=== PATIENT | female | born 1985 | race Caucasian/White ===

== ENCOUNTER 2022-09-13 14:49 | Inpatient (IN) | payer MEDICAID, OTHER ==
[2022-09-13] MEDS ORDERED: PROVENTIL 2.5 MG/3 ML NEB IH ONE ×2 (15:19→15:21)
[2022-09-13] MEDS ORDERED: solu-MEDROL 125 MG, Sterile H2O 10 ml 2 ML IV ONE ×2 (15:20)
[2022-09-13] MEDS ORDERED: HYDROCODONE-ACETAMIN 2.5-108/5 ML SOLUTION PO STA (15:21)
[2022-09-13] MEDS ORDERED: Sterile H2O 10 ml IJ ONE (15:29)
[2022-09-13] MEDS ORDERED: solu-MEDROL ONE (15:30)
[2022-09-13] MEDS ORDERED: HYDROCODONE-ACETAMIN 2.5-108/5 ML SOLUTION ONE (15:30)
[2022-09-13 15:36] LABS: Absolute Neutrophil Ct (ANC) 7.15 x10^3/uL (1.4-6.9); BASOPHIL % 0.9 % (0.0-0.4); Basophil (Absolute #) 0.09 x10^3/uL (0-0.4); Hematocrit 36.5 % (35-47); Hemoglobin 10.9 g/dL (12.0-16.0); IMMATURE GRAN # 0.05 x10^3u/L (0.00-0.03); IMMATURE GRAN % 0.5 % (0.00-0.4); Lymphocyte (Absolute #) 1.46 x10^3/uL (1.0-4.6); Lymphocytes % 14.7 % (24.0-44.0); Mean Cell Volume 91.7 fL (78-100); Mean Corpuscular Hemoglobin 27.4 pg (26-32); Mean Corpuscular Hgb Concent. 29.9 g/dL (32-36); Monocyte (Absolute #) 0.85 x10^3/uL (0.0-1.3); Monocytes % 8.6 % (0.0-12.0); Neutrophil % 72.3 % (36.0-66.0); Platelet Count 341 x10^3/uL (150-450); Red Blood Count 3.98 x10^6/uL (4.1-5.4); Red Cell Distribution Width 16.4 % (11.5-14.0); White Blood Count 9.9 x10^3/uL (4.0-10.5)
[2022-09-13 15:59] LABS: ALBUMIN 3.5 g/dL (3.5-5.0); ALKALINE PHOSPHATASE 129 U/L (38-126); ANION GAP 10.2 MEQ/L (5-15); BLOOD UREA NITROGEN 14 mg/dL (7-17); CHLORIDE 107 mmol/L (98-107); Calcium 8.7 mg/dL (8.4-10.2); Carbon Dioxide 25 mmol/L (22-30); Creatinine 1 0.77 mg/dL (0.52-1.04); EST GLOMERULAR FILTRATION RATE > 60.0 ML/MIN; Glucose 110 mg/dL (74-106); NT PRO BNP 4700 pg/mL (0-450); SGOT/AST 31 U/L (14-36); SGPT/ALT 37 U/L (0-35); SODIUM 138 mmol/L (137-145); Total Protein 6.6 g/dL (6.3-8.2)
--- NOTE | 2022-09-13 16:04 | ERPHSYRPT ---
- History of Present Illness Time Seen by Provider: 09/13/22 15:00 Source: patient Exam Limitations: clinical condition Patient Subjective Stated Complaint: Pt c/o of SOB, cough, body fatigue, chest pain from cough Triage Nursing Assessment: Pt brought to the ER by a friend, hypertensive, tachycardic, hypoxic, tachypnic, crackles in lyn bases with exp wheezes, cough with intermittant thick yellow sputum, skin flushed in color, pulses normal, ra lasha pain as 4/10 in her chest from coughing Physician History: This is an obese 36-year-old white female who has not seen a primary care physician and is a current daily smoker of cigarettes and presents with 2-month history of worsening shortness of breath. The last few days the patient has noticed increased coughing, increased shortness of breath as well as body aches. She is coughing up yellowish sputum. Patient has an appointment to see Dr. Cosby in 1 to 2 weeks. Her symptoms worsened rapidly and she states that she could not wait to see Dr. Cosby. She has not measured a fever. She has no abdominal pain. She states she has chest pain with coughing only. Timing/Duration: worse, other (Symptoms present for couple of months.) Activities at Onset: none Severity of Dyspnea-Max: moderate Severity of Dyspnea-Current: moderate Possible Cause: no prior episodes Modifying Factors: Improves With: coughing Associated Symptoms: anxiety, cough, productive cough Hx Influenza Vaccination/Date Given: No Hx Pneumococcal Vaccination/Date Given: No Travel Risk - International Travel Have you traveled outside of the country in past 3 weeks: No - Coronavirus Screening Are you exhibiting any of the following symptoms?: Yes Symptoms: Cough: New Onset, Shortness of Breath, Vomiting/Diarrhea, Headaches/Body Aches/Fatigue Close contact with a COVID-19 positive Pt in past 14-21 Days: No - Vaccine Status Have you recieved a Covid-19 vaccination: Yes L D Rn: [employer] - Review of Systems Constitutional: Weakness Eyes: No Symptoms Ears, Nose, & Throat: No Symptoms Respiratory: Cough, Dyspnea Cardiac: Chest Pain (Coughing only) Abdominal/Gastrointestinal: No Symptoms Genitourinary Symptoms: No Symptoms Musculoskeletal: Arthralgias, Myalgias Skin: No Symptoms Neurological: No Symptoms Psychological: No Symptoms Endocrine: No Symptoms Hematologic/Lymphatic: No Symptoms Immunological/Allergic: No Symptoms All Other Systems: Reviewed and Negative - Past Medical History Pertinent Past Medical History: Yes Cardiac History: Hypertension Musculoskeletal History: Arthritis Psycho-Social History: Depression - Past Surgical History Past Surgical History: Yes Gastrointestinal: Cholecystectomy Musculoskeletal: Joint Replacement Female Surgical History: Section - Social History Smoking Status: Current every day smoker Exposure to second hand smoke: Yes Drug Use: none Patient Lives Alone: Yes - Female History Hx Now: No - Nursing Vital Signs Nursing Vital Signs: Initial Vital Signs Temperature 98.4 F 09/13/22 14:58 Pulse Rate 107 H 09/13/22 14:58 Respiratory Rate 30 H 09/13/22 14:58 Blood Pressure 178/129 09/13/22 14:58 O2 Sat by Pulse Oximetry 92 L 09/13/22 14:58 Pain Scale Pain Intensity 0 - Physical Exam General Appearance: mild distress (To moderate), alert, anxiety, obese Eye Exam: PERRL/EOMI, eyes nml inspection Ears, Nose, Throat Exam: hearing grossly normal, normal ENT inspection, normal pharynx Neck Exam: normal inspection, non-tender, supple, full range of motion Respiratory Exam: respiratory distress, airway intact, diminished breath sounds (Bilaterally), No chest tenderness Cardiovascular/Chest Exam: normal heart sounds, normal peripheral pulses, tachycardia Abdominal/Gastrointestinal Exam: soft, normal bowel sounds, No tenderness Rectal Exam: not done Extremity Exam: non-tender, normal range of motion, normal inspection, No calf tenderness Neurologic Exam: alert, oriented x 3, cooperative, criminal profiler II-XII nml as tested, normal mood/affect, nml cerebellar function, nml station & gait, sensation nml Skin Exam: normal color, warm, dry Lymphatic Exam: No adenopathy SpO2 Interpretation: normal SpO2: 95 O2 Delivery: Room Air - Course Nursing assessment & vital signs reviewed: Yes EKG Interpreted by Me: RATE (103), Sinus Tach, NORMAL AXIS, prolonged QT interval (Borderline), NORMAL QRS, Other (No acute ischemic changes on today's EKG) Ordered Tests: Active Orders 24 hr Category Date Time Status EKG-ER Only STAT Care 09/13/22 15:20 Active IV Insertion STAT Care 09/13/22 15:20 Active Pulse Oximetry (ED) STAT Care 09/13/22 15:20 Active CHEST 1 VIEW (PORTABLE) Stat Exams 09/13/22 15:20 Completed CHEST WITH CONTRAST [CT] Stat Exams 09/13/22 16:12 Taken ARTERIAL BLOOD GASES Stat Lab 09/13/22 17:05 Completed BLOOD CULTURE Stat Lab 09/13/22 15:30 Received CBC W DIFF Stat Lab 09/13/22 15:28 Completed CMP Stat Lab 09/13/22 15:28 Completed D-DIMER QUANTITATIVE Stat Lab 09/13/22 15:28 Completed Lactic Acid Stat Lab 09/13/22 17:05 Completed NT PRO BNP Stat Lab 09/13/22 15:28 Completed TROPONIN Q4H Lab 09/13/22 15:28 Completed TROPONIN Q4H Lab 09/13/22 19:36 Completed TROPONIN Q4H Lab 09/13/22 23:30 Ordered Respiratory Therapy Assessment DAILY RT 09/13/22 15:21 Completed Transfer Order Routine Transfer 09/13/22 Ordered Medication Summary Generic Name Dose Route Start Last Admin Trade Name Freq PRN Reason Stop Dose Admin Sodium Chloride 1,000 mls @ 200 mls/hr 09/13/22 16:15 09/13/22 17:04 Sodium Chloride 0.9% 1000 Ml IV 10/13/22 16:14 200 mls/hr .Q5H MONO Administration Discontinued Medications Generic Name Dose Route Start Last Admin Trade Name Freq PRN Reason Stop Dose Admin Hydrocodone Bitart/Acetaminophen 15 ml 09/13/22 15:21 09/13/22 15:34 Hydrocodone/Acetaminophen 5 Ml Udcup PO 09/13/22 15:22 15 ml STAT STA Administration Hydrocodone Bitart/Acetaminophen Confirm 09/13/22 15:30 Hydrocodone/Acetaminophen 5 Ml Udcup Administered 09/13/22 15:31 Dose 15 ml .ROUTE .STK-MED ONE Albuterol Sulfate Confirm 09/13/22 15:19 Albuterol Sulfate 2.5 Mg/3 Ml Neb Administered 09/13/22 15:20 Dose 2.5 mg IH .STK-MED ONE Albuterol Sulfate 2.5 mg 09/13/22 15:21 09/13/22 15:22 Albuterol Sulfate 2.5 Mg/3 Ml Neb IH 09/13/22 15:22 2.5 mg STAT ONE Administration Apixaban 10 mg 09/13/22 20:01 09/13/22 20:21 Apixaban 2.5 Mg Tablet PO 09/13/22 20:02 Not Given STAT ONE Methylprednisolone Sodium 0 mg 09/13/22 15:20 09/13/22 16:46 Succinate 125 mg/ Sterile IV 09/13/22 15:21 125 mg Water 2 ml STAT ONE Administration Enoxaparin Sodium 160 mg 09/13/22 20:24 09/13/22 20:31 Enoxaparin Sodium 80 Mg/0.8 Ml Syringe SQ 09/13/22 20:25 160 mg STAT ONE Administration Enoxaparin Sodium Confirm 09/13/22 20:30 Enoxaparin Sodium 80 Mg/0.8 Ml Syringe Administered 09/13/22 20:31 Dose 160 mg SQ .STK-MED ONE Furosemide 40 mg 09/13/22 16:11 09/13/22 17:05 Furosemide 40 Mg/4 Ml Vial IV 09/13/22 16:12 40 mg STAT ONE Administration Furosemide Confirm 09/13/22 16:52 Furosemide 40 Mg/4 Ml Vial Administered 09/13/22 16:53 Dose 40 mg .ROUTE .STK-MED ONE Methylprednisolone Sodium Succinate Confirm 09/13/22 15:30 Methylprednis Sod Succ 125 Mg/2 Ml Vial Administered 09/13/22 15:31 Dose 125 mg .ROUTE .STK-MED ONE Sterile Water Confirm 09/13/22 15:29 Water For Injection,Sterile 10 Ml Vial Administered 09/13/22 15:30 Dose 10 ml IJ .STK-MED ONE Lab/Rad Data: Laboratory Result Diagrams 09/13/22 15:28 09/13/22 15:28 Laboratory Results 09/13/22 09/13/22 09/13/22 Range/Units 19:36 17:05 15:28 WBC (4.0-10.5) x10^3/uL RBC (4.1-5.4) x10^6/uL Hgb (12.0-16.0) g/dL Hct (35-47) % MCV (78-100) fL MCH (26-32) pg MCHC (32-36) g/dL RDW (11.5-14.0) % Plt Count (150-450) x10^3/uL MPV (7.5-11.0) fL Gran % (36.0-66.0) % Immature Gran % (Auto) (0.00-0.4) % Nucleat RBC Rel Count (0.00-0.1) % Eos # (Auto) (0-0.5) x10^3/uL Immature Gran # (Auto) (0.00-0.03) x10^3u/L Absolute Lymphs (auto) (1.0-4.6) x10^3/uL Absolute Monos (auto) (0.0-1.3) x10^3/uL Absolute Nucleated RBC (0.00-0.01) x10^3u/L Lymphocytes % (24.0-44.0) % Monocytes % (0.0-12.0) % Eosinophils % (0.00-5.0) % Basophils % (0.0-0.4) % Absolute Granulocytes (1.4-6.9) x10^3/uL Basophils # (0-0.4) x10^3/uL D-Dimer (0.0-0.50) mg/L Puncture Site RIGHT RADIAL pCO2 38 (35-45) mmHg pO2 94 (75-100) mmHg Base Excess 0.2 (-2.0-2.0) O2 Saturation 94.8 (94-100) g/dF ABG pH 7.42 (7.35-7.45) ABG HCO3 24.6 (22-28) ABG O2 Sat (Measured) 96.9 (95-100) % James Test y A-a Gradient 58 a/A Ratio 0.62 Hemoglobin 11.4 Carboxyhemoglobin 1.6 (0.0-6.9) % THgb Methemoglobin 0.6 L (1.4-1.5) % Temperature 37.0 C POC O2 Flow Rate 28 % Sodium (137-145) mmol/L Potassium 4.2 (3.5-5.1) mmol/L Chloride (98-107) mmol/L Carbon Dioxide (22-30) mmol/L Anion Gap (5-15) MEQ/L BUN (7-17) mg/dL Creatinine (0.52-1.04) mg/dL Estimated GFR ML/MIN Glucose (74-106) mg/dL Lactic Acid 0.8 (0.4-2.0) Calcium (8.4-10.2) mg/dL Total Bilirubin (0.2-1.3) mg/dL AST (14-36) U/L ALT (0-35) U/L Alkaline Phosphatase (38-126) U/L Troponin I 0.103 H* (0.000-0.034) ng/mL NT-Pro-B Natriuret Pep (0-450) pg/mL Serum Total Protein (6.3-8.2) g/dL Albumin (3.5-5.0) g/dL Influenza Type A Ag NEGATIVE (NEGATIVE) Influenza Type B Ag NEGATIVE (NEGATIVE) RSV (PCR) NEGATIVE (Negative) SARS-CoV-2 (PCR) NEGATIVE (NEGATIVE) 09/13/22 09/13/22 09/13/22 Range/Units 15:28 15:28 15:28 WBC (4.0-10.5) x10^3/uL RBC (4.1-5.4) x10^6/uL Hgb (12.0-16.0) g/dL Hct (35-47) % MCV (78-100) fL MCH (26-32) pg MCHC (32-36) g/dL RDW (11.5-14.0) % Plt Count (150-450) x10^3/uL MPV (7.5-11.0) fL Gran % (36.0-66.0) % Immature Gran % (Auto) (0.00-0.4) % Nucleat RBC Rel Count (0.00-0.1) % Eos # (Auto) (0-0.5) x10^3/uL Immature Gran # (Auto) (0.00-0.03) x10^3u/L Absolute Lymphs (auto) (1.0-4.6) x10^3/uL Absolute Monos (auto) (0.0-1.3) x10^3/uL Absolute Nucleated RBC (0.00-0.01) x10^3u/L Lymphocytes % (24.0-44.0) % Monocytes % (0.0-12.0) % Eosinophils % (0.00-5.0) % Basophils % (0.0-0.4) % Absolute Granulocytes (1.4-6.9) x10^3/uL Basophils # (0-0.4) x10^3/uL D-Dimer 3.03 H* (0.0-0.50) mg/L Puncture Site pCO2 (35-45) mmHg pO2 (75-100) mmHg Base Excess (-2.0-2.0) O2 Saturation (94-100) g/dF ABG pH (7.35-7.45) ABG HCO3 (22-28) ABG O2 Sat (Measured) (95-100) % James Test A-a Gradient a/A Ratio Hemoglobin Carboxyhemoglobin (0.0-6.9) % THgb Methemoglobin (1.4-1.5) % Temperature C POC O2 Flow Rate % Sodium 138 (137-145) mmol/L Potassium 4.0 (3.5-5.1) mmol/L Chloride 107 (98-107) mmol/L Carbon Dioxide 25 (22-30) mmol/L Anion Gap 10.2 (5-15) MEQ/L BUN 14 (7-17) mg/dL Creatinine 0.77 (0.52-1.04) mg/dL Estimated GFR > 60.0 ML/MIN Glucose 110 H (74-106) mg/dL Lactic Acid (0.4-2.0) Calcium 8.7 (8.4-10.2) mg/dL Total Bilirubin 0.50 (0.2-1.3) mg/dL AST 31 (14-36) U/L ALT 37 H (0-35) U/L Alkaline Phosphatase 129 H (38-126) U/L Troponin I 0.095 H* (0.000-0.034) ng/mL NT-Pro-B Natriuret Pep 4700 H (0-450) pg/mL Serum Total Protein 6.6 (6.3-8.2) g/dL Albumin 3.5 (3.5-5.0) g/dL Influenza Type A Ag (NEGATIVE) Influenza Type B Ag (NEGATIVE) RSV (PCR) (Negative) SARS-CoV-2 (PCR) (NEGATIVE) 09/13/22 Range/Units 15:28 WBC 9.9 (4.0-10.5) x10^3/uL RBC 3.98 L (4.1-5.4) x10^6/uL Hgb 10.9 L (12.0-16.0) g/dL Hct 36.5 (35-47) % MCV 91.7 (78-100) fL MCH 27.4 (26-32) pg MCHC 29.9 L (32-36) g/dL RDW 16.4 H (11.5-14.0) % Plt Count 341 (150-450) x10^3/uL MPV 9.0 (7.5-11.0) fL Gran % 72.3 H (36.0-66.0) % Immature Gran % (Auto) 0.5 H (0.00-0.4) % Nucleat RBC Rel Count 0.0 (0.00-0.1) % Eos # (Auto) 0.30 (0-0.5) x10^3/uL Immature Gran # (Auto) 0.05 H (0.00-0.03) x10^3u/L Absolute Lymphs (auto) 1.46 (1.0-4.6) x10^3/uL Absolute Monos (auto) 0.85 (0.0-1.3) x10^3/uL Absolute Nucleated RBC 0.00 (0.00-0.01) x10^3u/L Lymphocytes % 14.7 L (24.0-44.0) % Monocytes % 8.6 (0.0-12.0) % Eosinophils % 3.0 (0.00-5.0) % Basophils % 0.9 (0.0-0.4) % Absolute Granulocytes 7.15 H (1.4-6.9) x10^3/uL Basophils # 0.09 (0-0.4) x10^3/uL D-Dimer (0.0-0.50) mg/L Puncture Site pCO2 (35-45) mmHg pO2 (75-100) mmHg Base Excess (-2.0-2.0) O2 Saturation (94-100) g/dF ABG pH (7.35-7.45) ABG HCO3 (22-28) ABG O2 Sat (Measured) (95-100) % James Test A-a Gradient a/A Ratio Hemoglobin Carboxyhemoglobin (0.0-6.9) % THgb Methemoglobin (1.4-1.5) % Temperature C POC O2 Flow Rate % Sodium (137-145) mmol/L Potassium (3.5-5.1) mmol/L Chloride (98-107) mmol/L Carbon Dioxide (22-30) mmol/L Anion Gap (5-15) MEQ/L BUN (7-17) mg/dL Creatinine (0.52-1.04) mg/dL Estimated GFR ML/MIN Glucose (74-106) mg/dL Lactic Acid (0.4-2.0) Calcium (8.4-10.2) mg/dL Total Bilirubin (0.2-1.3) mg/dL AST (14-36) U/L ALT (0-35) U/L Alkaline Phosphatase (38-126) U/L Troponin I (0.000-0.034) ng/mL NT-Pro-B Natriuret Pep (0-450) pg/mL Serum Total Protein (6.3-8.2) g/dL Albumin (3.5-5.0) g/dL Influenza Type A Ag (NEGATIVE) Influenza Type B Ag (NEGATIVE) RSV (PCR) (Negative) SARS-CoV-2 (PCR) (NEGATIVE) - Progress Progress: improved Air Movement: fair Progress Note: 09/13/22 16:09 Chest x-ray interpreted by me. Right middle to lower lobe infiltrate 09/13/22 19:59 CTA of chest reveals left lower lobe occluding and nonoccluding pulmonary emboli. There is mild diffuse bilateral patchy airspace disease greatest in both lower lobes with small bilateral pleural effusions. There is a small hiatal hernia present. 09/13/22 20:38 Medical decision-making: This patient has pneumonia. She also has left lower lobe pulmonary emboli. Patient needs to be admitted in the hospital placed on a monitored telemetry bed. Patient will be given intravenous fluids, intravenous antibiotics, intravenous steroids, subcutaneous Lovenox and repeat troponins and twelve-lead EKG. I spoke with Dr. Adams who will be admitting this patient. I reviewed the patient history, physical findings, results of the radiographic and laboratory studies. I also spoke with him regarding results of the twelve- lead EKG. Dr. Mccoy and I both feel that the elevated troponins are secondary to cardiac strain and not an acute ischemic issue. We have formulated the above plan together and we will place the patient on a monitored telemetry unit. Blood Culture(s) Obtained: Yes Counseled pt/family regarding: lab results, diagnosis, need for follow-up, rad results - Departure Departure Disposition: In-patient Admission Clinical Impression: Pneumonia, Pulmonary embolus Condition: Fair Critical Care Time: Yes Critical Care Time(excluding separately billable procedures): Critical 30-74 mins (50 minutes) Referrals: ERENDIRA COSBY MD [Primary Care Provider] - Follow up/PCP as directed
[2022-09-13] MEDS ORDERED: Lasix 40 MG/4 ML IV ONE (16:11)
[2022-09-13] MEDS ORDERED: Sodium Chloride 0.9% 1000 ML 1,000 ML IV SCH (16:15)
[2022-09-13 16:18] LABS: INFLUENZA A NEGATIVE (NEGATIVE); INFLUENZA B NEGATIVE (NEGATIVE); RESPIRATORY SYNCTIAL VIRUS NEGATIVE (Negative); SARS-CoV-2 Xpert Express NEGATIVE (NEGATIVE)
--- NOTE | 2022-09-13 16:30 | XRAY ---
Indication: Short of breath. Cough. Comparison: None Portable chest demonstrates diffuse bilateral hazy interstitial alveolar opacities, greatest right infrahilar region without consolidation/large effusion. Heart not enlarged. Bony thorax intact.
[2022-09-13] MEDS ORDERED: Sodium Chloride 0.9% 1000 ML 1,000 ML ONE (16:52)
[2022-09-13] MEDS ORDERED: Lasix 40 MG/4 ML ONE (16:52)
[2022-09-13 17:09] LABS: A-aADO2 58; ABG HEMOGLOBIN 11.4; ABG POTASSIUM 4.2 (3.5-5.1); ABG SITE RIGHT RADIAL; ALLEN TEST OK? y; ARTERIAL BLD GAS O2 SATURATION 96.9 % (95-100); ARTERIAL BLOOD GAS BASE EXCESS 0.2 (-2.0-2.0); ARTERIAL BLOOD GAS FIO2 28 %; ARTERIAL BLOOD GAS PCO2 38 mmHg (35-45); ARTERIAL BLOOD GAS PO2 94 mmHg (75-100); ARTERIAL BLOOD GAS pH 7.42 (7.35-7.45); CARBOXYHEMOGLOBIN 1.6 % THgb (0.0-6.9); HCO3- 24.6 (22-28); HGB O2 SAT 94.8 g/dF (94-100); Lactic Acid 0.8 (0.4-2.0); Methhemoglobin 0.6 % (1.4-1.5); paO2 pAO1 0.62
[2022-09-13] MEDS ORDERED: ELIQUIS 2.5 MG TABLET PO ONE (20:01)
[2022-09-13] MEDS ORDERED: ENOXAPARIN SODIUM SQ ONE ×2 (20:24→20:30)
[2022-09-13] MEDS ORDERED: ROCEPHIN 2 Gm-D5w 50ML BAG** 2 G/50 ML IVPB IV STA (20:56)
[2022-09-13] MEDS ORDERED: ROCEPHIN 2 Gm-D5w 50ML BAG** 2 G/50 ML IVPB IV ONE (20:58)
[2022-09-13] MEDS ORDERED: HYDROCODONE-ACETAMIN 2.5-108/5 ML SOLUTION PO PRN (21:01)
[2022-09-13] MEDS ORDERED: TYLENOL 325 MG PO PRN (21:01)
[2022-09-13] MEDS: Sodium Chloride 0.9% 1000 ML 1,000 ML IV SCH (22:16)
[2022-09-13] MEDS: ENOXAPARIN SODIUM SQ SCH (22:17)
[2022-09-13] MEDS: Lasix 20 MG/2 ML IV SCH (22:17)
[2022-09-13] MEDS: solu-MEDROL 80 MG, Sterile H2O 10 ml 2 ML IV SCH ×2 (22:18)
[2022-09-14] MEDS: VENTOLIN COMMON CANISTER IH SCH ×3 (05:34→18:48)
[2022-09-14] MEDS ORDERED: solu-MEDROL ONE (05:44)
[2022-09-14] MEDS ORDERED: Sterile H2O 10 ml IJ ONE (05:44)
[2022-09-14 05:46] LABS: Absolute Neutrophil Ct (ANC) 10.92 x10^3/uL (1.4-6.9); BASOPHIL % 0.1 % (0.0-0.4); Basophil (Absolute #) 0.01 x10^3/uL (0-0.4); Eosinophil (Absolute #) 0 x10^3/uL (0-0.5); Hematocrit 41.8 % (35-47); Hemoglobin 11.7 g/dL (12.0-16.0); IMMATURE GRAN # 0.07 x10^3u/L (0.00-0.03); IMMATURE GRAN % 0.6 % (0.00-0.4); Lymphocyte (Absolute #) 0.78 x10^3/uL (1.0-4.6); Lymphocytes % 6.5 % (24.0-44.0); Mean Cell Volume 96.8 fL (78-100); Mean Corpuscular Hemoglobin 27.1 pg (26-32); Mean Platelet Volume 10.7 fL (7.5-11.0); Monocytes % 1.7 % (0.0-12.0); Neutrophil % 91.1 % (36.0-66.0); Platelet Count 105 x10^3/uL (150-450); Red Blood Count 4.32 x10^6/uL (4.1-5.4); Red Cell Distribution Width 16.1 % (11.5-14.0)
[2022-09-14] MEDS: solu-MEDROL 80 MG, Sterile H2O 10 ml 2 ML IV SCH ×6 (05:53→22:17)
[2022-09-14 06:21] LABS: ALBUMIN 3.6 g/dL (3.5-5.0); ALKALINE PHOSPHATASE 116 U/L (38-126); BLOOD UREA NITROGEN 14 mg/dL (7-17); CHLORIDE 105 mmol/L (98-107); Calcium 8.5 mg/dL (8.4-10.2); Carbon Dioxide 28 mmol/L (22-30); Creatinine 1 0.72 mg/dL (0.52-1.04); EST GLOMERULAR FILTRATION RATE > 60.0 ML/MIN; Glucose 124 mg/dL (74-106); NT PRO BNP 4870 pg/mL (0-450); Potassium 4.3 mmol/L (3.5-5.1); SGOT/AST 29 U/L (14-36); SGPT/ALT 36 U/L (0-35); SODIUM 137 mmol/L (137-145); Total Protein 6.9 g/dL (6.3-8.2)
[2022-09-14 06:24] LABS: Slide Review 1 YES
--- NOTE | 2022-09-14 08:30 | XRAY ---
Indication: Short of breath, cough, and chest pain. Elevated d-dimer. Multiple contiguous axial images obtained through the chest using 100 cc Isovue 370 contrast and PE protocol. Comparison: None Good opacification of the pulmonary arteries to include the lobar and segmental branches. Near complete occluding pulmonary embolus seen in the left lower lobe pulmonary artery. Additional occluding and nonoccluding pulmonary emboli seen more distally in the segmental branches of the left lower lobe. Heart borderline enlarged. Aorta is normal in course and caliber. Tiny mediastinal and left hilar calcified nodes. No pathologic mediastinal/hilar lymphadenopathy. Small hiatal hernia. Lungs demonstrate mild patchy consolidating and nonconsolidating airspace disease in both lower lobes with lesser degrees seen in both upper lobes. Small bilateral effusions, right greater than left. Lingula demonstrates subsegmental atelectasis/scarring. Bony thorax intact with mild degenerative changes throughout the spine. Limited upper abdomen demonstrate fatty liver and cholecystectomy clips. Impression: 1. Occluding and nonoccluding left lower lobe pulmonary emboli. 2. Diffuse bilateral consolidating and nonconsolidating patchy airspace disease with small bilateral effusions. 3. Incidental hiatal hernia, fatty liver, and old granulomatous disease.
[2022-09-14] MEDS: Zithromax 500 MG/ 250 ML NaCl Premix 500 MG/250 ML IVPB IV SCH (10:24)
[2022-09-14] MEDS: Lasix 20 MG/2 ML IV SCH ×2 (10:33→22:18)
[2022-09-14] MEDS: Zestril 10 MG PO SCH (10:34)
[2022-09-14] MEDS: ELIQUIS 2.5 MG TABLET PO SCH ×2 (13:42→22:14)
[2022-09-14] MEDS: ENOXAPARIN SODIUM SQ SCH (13:46)
[2022-09-14] MEDS: Sodium Chloride 0.9% 1000 ML 1,000 ML IV SCH (19:59)
[2022-09-14] MEDS: ROCEPHIN 1 Gm-D5w 50 ml Bag** 1 G/50 ML IVPB IV SCH (22:19)
[2022-09-14] MEDS ORDERED: Zofran 4 MG/2 ML VIAL IV PRN (22:48)
[2022-09-14] MEDS: Tums EX 750 MG PO PRN (23:13)
[2022-09-15] MEDS: solu-MEDROL 80 MG, Sterile H2O 10 ml 2 ML IV SCH ×6 (05:06→22:28)
[2022-09-15 05:39] LABS: Absolute Neutrophil Ct (ANC) 16.69 x10^3/uL (1.4-6.9); BASOPHIL % 0.2 % (0.0-0.4); Basophil (Absolute #) 0.03 x10^3/uL (0-0.4); Eosinophil (Absolute #) 0 x10^3/uL (0-0.5); Hematocrit 37.3 % (35-47); Hemoglobin 10.9 g/dL (12.0-16.0); IMMATURE GRAN # 0.13 x10^3u/L (0.00-0.03); IMMATURE GRAN % 0.7 % (0.00-0.4); Lymphocytes % 3.9 % (24.0-44.0); Mean Corpuscular Hemoglobin 27.5 pg (26-32); Mean Corpuscular Hgb Concent. 29.2 g/dL (32-36); Mean Platelet Volume 9.3 fL (7.5-11.0); Monocyte (Absolute #) 0.55 x10^3/uL (0.0-1.3); Neutrophil % 92.2 % (36.0-66.0); Platelet Count 408 x10^3/uL (150-450); Red Blood Count 3.97 x10^6/uL (4.1-5.4); Red Cell Distribution Width 16.3 % (11.5-14.0); White Blood Count 18.1 x10^3/uL (4.0-10.5)
[2022-09-15 06:17] LABS: ALBUMIN 3.6 g/dL (3.5-5.0); ALKALINE PHOSPHATASE 106 U/L (38-126); ANION GAP 8.8 MEQ/L (5-15); BLOOD UREA NITROGEN 18 mg/dL (7-17); CHLORIDE 103 mmol/L (98-107); Calcium 8.6 mg/dL (8.4-10.2); Carbon Dioxide 32 mmol/L (22-30); Creatinine 1 0.78 mg/dL (0.52-1.04); EST GLOMERULAR FILTRATION RATE > 60.0 ML/MIN; Glucose 132 mg/dL (74-106); Potassium 4.3 mmol/L (3.5-5.1); SGOT/AST 21 U/L (14-36); SGPT/ALT 29 U/L (0-35); SODIUM 140 mmol/L (137-145); Total Protein 6.8 g/dL (6.3-8.2)
[2022-09-15] MEDS: Tums EX 750 MG PO PRN (06:21)
[2022-09-15] MEDS: VENTOLIN COMMON CANISTER IH SCH ×3 (08:05→19:11)
[2022-09-15] MEDS: Zithromax 500 MG/ 250 ML NaCl Premix 500 MG/250 ML IVPB IV SCH (09:42)
[2022-09-15] MEDS: Lasix 20 MG/2 ML IV SCH ×2 (09:43→22:26)
[2022-09-15] MEDS: Zestril 10 MG PO SCH (09:43)
[2022-09-15] MEDS: ELIQUIS 2.5 MG TABLET PO SCH ×2 (09:43→22:23)
[2022-09-15] MEDS ORDERED: solu-MEDROL ONE (14:49)
[2022-09-15] MEDS: Sodium Chloride 0.9% 1000 ML 1,000 ML IV SCH (15:51)
[2022-09-15] MEDS ORDERED: DUONEB 0.5-3 MG/3 ml Neb IH PRN (18:00)
[2022-09-15] MEDS ORDERED: DUONEB 0.5-3 MG/3 ml Neb IH ONE (18:39)
--- NOTE | 2022-09-15 20:31 | PCM.NOTE ---
Date and Time: 09/15/222021 Subjective Assessment: Patient is sleeping but awakens alert and OX3 ,no conversational dyspnea or cough. Ate late supper,awaiting transfer for proceedure to treat occluding PE. Objective Exam General Appearance: no apparent distress, other (morbidly obese) Neurologic Exam: alert, oriented x 3, cooperative Skin Exam: normal color, warm, dry Ears, Nose, Throat Exam: normal ENT inspection Neck Exam: normal inspection Respiratory Exam: diminished breath sounds (bilaterally), other (on O2/NC no resp distress) Gastrointestinal/Abdomen Exam: soft (nontender) Extremity Exam: normal inspection OBJECTIVE DATA Vital Signs: Vital Signs - 24 hr Temp Pulse Resp BP Pulse Ox 09/15/22 20:00 97.6 F 93 H 16 127/73 94 L 09/15/22 18:25 114 H 24 98 09/15/22 15:57 97.9 F 94 H 16 137/65 96 09/15/22 14:15 96 H 18 98 09/15/22 11:53 98.2 F 96 H 18 115/61 100 09/15/22 08:00 91 H 18 96 09/15/22 07:53 96.9 F 94 H 18 143/79 93 L 09/15/22 04:01 97.5 F 95 H 20 122/80 93 L 09/14/22 23:00 97.8 F 105 H 23 137/82 96 Pain Assessment - Last Documented Pain Intensity 0 Pain Scale Used 0-10 Pain Scale Intake and Output: Intake & Output 09/13/22 09/14/22 09/15/22 09/16/22 11:59 11:59 11:59 11:59 Intake Total 967 1693 0 Output Total 4200 Balance 967 -2507 0 Weight 149 kg Lab Results: Lab Results-Last 24 Hours 09/15/22 09/15/22 Range/Units 04:45 04:45 WBC 18.1 H (4.0-10.5) x10^3/uL RBC 3.97 L (4.1-5.4) x10^6/uL Hgb 10.9 L (12.0-16.0) g/dL Hct 37.3 (35-47) % MCV 94.0 (78-100) fL MCH 27.5 (26-32) pg MCHC 29.2 L (32-36) g/dL RDW 16.3 H (11.5-14.0) % Plt Count 408 D (150-450) x10^3/uL MPV 9.3 (7.5-11.0) fL Gran % 92.2 H (36.0-66.0) % Immature Gran % (Auto) 0.7 H (0.00-0.4) % Nucleat RBC Rel Count 0.0 (0.00-0.1) % Eos # (Auto) 0 (0-0.5) x10^3/uL Immature Gran # (Auto) 0.13 H (0.00-0.03) x10^3u/L Absolute Lymphs (auto) 0.70 L (1.0-4.6) x10^3/uL Absolute Monos (auto) 0.55 (0.0-1.3) x10^3/uL Absolute Nucleated RBC 0.00 (0.00-0.01) x10^3u/L Lymphocytes % 3.9 L (24.0-44.0) % Monocytes % 3.0 (0.0-12.0) % Eosinophils % 0.0 (0.00-5.0) % Basophils % 0.2 (0.0-0.4) % Absolute Granulocytes 16.69 H (1.4-6.9) x10^3/uL Basophils # 0.03 (0-0.4) x10^3/uL Sodium 140 (137-145) mmol/L Potassium 4.3 (3.5-5.1) mmol/L Chloride 103 (98-107) mmol/L Carbon Dioxide 32 H (22-30) mmol/L Anion Gap 8.8 (5-15) MEQ/L BUN 18 H (7-17) mg/dL Creatinine 0.78 (0.52-1.04) mg/dL Estimated GFR > 60.0 ML/MIN Glucose 132 H (74-106) mg/dL Calcium 8.6 (8.4-10.2) mg/dL Total Bilirubin 0.30 (0.2-1.3) mg/dL AST 21 (14-36) U/L ALT 29 (0-35) U/L Alkaline Phosphatase 106 (38-126) U/L Serum Total Protein 6.8 (6.3-8.2) g/dL Albumin 3.6 (3.5-5.0) g/dL Multi-Disciplinary Progress Notes: Multi-Disciplinary Progress Notes 09/15/22 11:40 Case Management Note by Ciara Navarro PATIENT REPORTS SHE IS INDEPENDENT AT HOME WITH ADLS AND LIVES ALONE. NO FURTHER DC PLANNING DONE AT THIS TIME PATIENT HAS BEEN ACCEPTED AT HIGHER LEVEL OF CARE- WAITING ON BED Initialized on 09/15/22 11:40 - END OF NOTE Assessment/Plan (1) Pulmonary emboli Current Visit: Yes Status: Acute Assessment & Plan: occluding and nonoccluding left lung with effusions,await transfer for higher level of care Code(s): I26.99 - OTHER PULMONARY EMBOLISM WITHOUT ACUTE COR PULMONALE
[2022-09-15] MEDS: ROCEPHIN 1 Gm-D5w 50 ml Bag** 1 G/50 ML IVPB IV SCH (22:22)
[2022-09-16] MEDS: solu-MEDROL 80 MG, Sterile H2O 10 ml 2 ML IV SCH ×6 (05:51→21:40)
[2022-09-16 06:30] LABS: Absolute Neutrophil Ct (ANC) 15.87 x10^3/uL (1.4-6.9); BASOPHIL % 0.1 % (0.0-0.4); Basophil (Absolute #) 0.01 x10^3/uL (0-0.4); Eosinophil (Absolute #) 0 x10^3/uL (0-0.5); Hematocrit 38.8 % (35-47); Hemoglobin 11.3 g/dL (12.0-16.0); IMMATURE GRAN % 0.6 % (0.00-0.4); Lymphocyte (Absolute #) 0.65 x10^3/uL (1.0-4.6); Lymphocytes % 3.8 % (24.0-44.0); Mean Cell Volume 93.7 fL (78-100); Mean Corpuscular Hemoglobin 27.3 pg (26-32); Mean Corpuscular Hgb Concent. 29.1 g/dL (32-36); Mean Platelet Volume 9.4 fL (7.5-11.0); Monocyte (Absolute #) 0.59 x10^3/uL (0.0-1.3); Monocytes % 3.4 % (0.0-12.0); Neutrophil % 92.1 % (36.0-66.0); Platelet Count 443 x10^3/uL (150-450); Red Blood Count 4.14 x10^6/uL (4.1-5.4); Red Cell Distribution Width 16.3 % (11.5-14.0); White Blood Count 17.2 x10^3/uL (4.0-10.5)
[2022-09-16 06:51] LABS: ALBUMIN 3.6 g/dL (3.5-5.0); ALKALINE PHOSPHATASE 100 U/L (38-126); ANION GAP 8.5 MEQ/L (5-15); BLOOD UREA NITROGEN 20 mg/dL (7-17); CHLORIDE 101 mmol/L (98-107); Calcium 8.5 mg/dL (8.4-10.2); Carbon Dioxide 33 mmol/L (22-30); Creatinine 1 0.73 mg/dL (0.52-1.04); EST GLOMERULAR FILTRATION RATE > 60.0 ML/MIN; Glucose 121 mg/dL (74-106); Potassium 4.4 mmol/L (3.5-5.1); SGOT/AST 21 U/L (14-36); SGPT/ALT 30 U/L (0-35); SODIUM 137 mmol/L (137-145); Total Protein 6.6 g/dL (6.3-8.2)
[2022-09-16] MEDS: VENTOLIN COMMON CANISTER IH SCH ×2 (07:27→12:06)
[2022-09-16] MEDS: NICODERM CQ 14 MG TOP SCH (08:36)
[2022-09-16] MEDS: Lasix 20 MG/2 ML IV SCH ×2 (11:27→21:40)
[2022-09-16] MEDS: ELIQUIS 2.5 MG TABLET PO SCH ×2 (11:27→21:40)
[2022-09-16] MEDS: Zestril 10 MG PO SCH (11:27)
[2022-09-16] MEDS ORDERED: Ativan 2 MG/1 ML VIAL IV ONE (11:54)
[2022-09-16] MEDS: Zithromax 500 MG/ 250 ML NaCl Premix 500 MG/250 ML IVPB IV SCH (12:10)
--- NOTE | 2022-09-16 14:55 | PCM.NOTE ---
Date and Time: 09/16/22 1451 Subjective Assessment: Patient has had anxiety/panic attacks during the night ,O2 sats remained in high 90s without increasing O2 (Oximask on 3l) VSS. ,is a smoker and nicotene patch started also Ativan 1 x dose . Patient is sleeping VSS. Transfer is still expected but not availabe right today. Objective Exam General Appearance: no apparent distress, other (anxious now sleeping since given Ativan 1 dose for panic attack.) Neurologic Exam: other (sleeping but awakens to her name) Skin Exam: normal color, warm, dry Neck Exam: normal inspection Respiratory Exam: diminished breath sounds (left base and fine crackle mid left,no wheeze or ronchi) Cardiovascular Exam: regular rate/rhythm OBJECTIVE DATA Vital Signs: Vital Signs - 24 hr Temp Pulse Resp BP Pulse Ox 09/16/22 12:06 92 H 18 98 09/16/22 11:35 97.3 F 96 H 17 155/97 96 09/16/22 08:00 98.8 F 97 H 17 148/78 90 L 09/16/22 07:29 102 H 18 96 09/16/22 04:00 98.2 F 104 H 24 122/89 98 09/15/22 23:45 97.7 F 96 H 26 H 140/72 97 09/15/22 20:00 97.6 F 93 H 16 127/73 94 L 09/15/22 18:25 114 H 24 98 09/15/22 15:57 97.9 F 94 H 16 137/65 96 Pain Assessment - Last Documented Pain Intensity 0 Pain Scale Used 0-10 Pain Scale Intake and Output: Intake & Output 09/14/22 09/15/22 09/16/22 09/17/22 11:59 11:59 11:59 11:59 Intake Total 967 1693 1200 240 Output Total 4200 Balance 967 -2507 1200 240 Weight 149 kg 149 kg Lab Results: Lab Results-Last 24 Hours 09/16/22 09/16/22 09/16/22 Range/Units 05:40 05:40 05:40 WBC 17.2 H (4.0-10.5) x10^3/uL RBC 4.14 (4.1-5.4) x10^6/uL Hgb 11.3 L (12.0-16.0) g/dL Hct 38.8 (35-47) % MCV 93.7 (78-100) fL MCH 27.3 (26-32) pg MCHC 29.1 L (32-36) g/dL RDW 16.3 H (11.5-14.0) % Plt Count 443 (150-450) x10^3/uL MPV 9.4 (7.5-11.0) fL Gran % 92.1 H (36.0-66.0) % Immature Gran % (Auto) 0.6 H (0.00-0.4) % Nucleat RBC Rel Count 0.0 (0.00-0.1) % Eos # (Auto) 0 (0-0.5) x10^3/uL Immature Gran # (Auto) 0.10 H (0.00-0.03) x10^3u/L Absolute Lymphs (auto) 0.65 L (1.0-4.6) x10^3/uL Absolute Monos (auto) 0.59 (0.0-1.3) x10^3/uL Absolute Nucleated RBC 0.00 (0.00-0.01) x10^3u/L Lymphocytes % 3.8 L (24.0-44.0) % Monocytes % 3.4 (0.0-12.0) % Eosinophils % 0.0 (0.00-5.0) % Basophils % 0.1 (0.0-0.4) % Absolute Granulocytes 15.87 H (1.4-6.9) x10^3/uL Basophils # 0.01 (0-0.4) x10^3/uL Sodium 137 (137-145) mmol/L Potassium 4.4 (3.5-5.1) mmol/L Chloride 101 (98-107) mmol/L Carbon Dioxide 33 H (22-30) mmol/L Anion Gap 8.5 (5-15) MEQ/L BUN 20 H (7-17) mg/dL Creatinine 0.73 (0.52-1.04) mg/dL Estimated GFR > 60.0 ML/MIN Glucose 121 H (74-106) mg/dL Calcium 8.5 (8.4-10.2) mg/dL Total Bilirubin 0.30 (0.2-1.3) mg/dL AST 21 (14-36) U/L ALT 30 (0-35) U/L Alkaline Phosphatase 100 (38-126) U/L Serum Total Protein 6.6 (6.3-8.2) g/dL Albumin 3.6 (3.5-5.0) g/dL Procalcitonin < 0.030 L (0.030-0.080) ng/mL Assessment/Plan (1) Pulmonary emboli Current Visit: Yes Status: Acute Code(s): I26.99 - OTHER PULMONARY EMBOLISM WITHOUT ACUTE COR PULMONALE (2) Anxiety Current Visit: Yes Status: Acute Assessment & Plan: smoker ,given nicotene patch and Ativan Code(s): F41.9 - ANXIETY DISORDER, UNSPECIFIED
[2022-09-16] MEDS: ROCEPHIN 1 Gm-D5w 50 ml Bag** 1 G/50 ML IVPB IV SCH (21:41)
[2022-09-17] MEDS: solu-MEDROL 80 MG, Sterile H2O 10 ml 2 ML IV SCH ×4 (05:34→15:13)
[2022-09-17] MEDS: VENTOLIN COMMON CANISTER IH SCH ×3 (07:06→19:59)
[2022-09-17] MEDS: Lasix 20 MG/2 ML IV SCH ×2 (08:28→20:42)
[2022-09-17] MEDS: NICODERM CQ 14 MG TOP SCH (08:28)
[2022-09-17] MEDS: Zestril 10 MG PO SCH (08:28)
[2022-09-17] MEDS: ELIQUIS 2.5 MG TABLET PO SCH ×2 (08:28→20:43)
[2022-09-17] MEDS: Zithromax 500 MG/ 250 ML NaCl Premix 500 MG/250 ML IVPB IV SCH (10:48)
[2022-09-17 14:53] LABS: BASOPHIL % 0.1 % (0.0-0.4); Basophil (Absolute #) 0.01 x10^3/uL (0-0.4); Eosinophil (Absolute #) 0 x10^3/uL (0-0.5); Hematocrit 38.2 % (35-47); Hemoglobin 11.5 g/dL (12.0-16.0); IMMATURE GRAN # 0.08 x10^3u/L (0.00-0.03); IMMATURE GRAN % 0.6 % (0.00-0.4); Lymphocyte (Absolute #) 0.75 x10^3/uL (1.0-4.6); Mean Cell Volume 91.8 fL (78-100); Mean Corpuscular Hemoglobin 27.6 pg (26-32); Mean Corpuscular Hgb Concent. 30.1 g/dL (32-36); Mean Platelet Volume 9.1 fL (7.5-11.0); Monocyte (Absolute #) 1.01 x10^3/uL (0.0-1.3); Neutrophil % 85.3 % (36.0-66.0); Platelet Count 386 x10^3/uL (150-450); Red Blood Count 4.16 x10^6/uL (4.1-5.4); Red Cell Distribution Width 15.1 % (11.5-14.0); White Blood Count 12.6 x10^3/uL (4.0-10.5)
[2022-09-17] MEDS: Prozac 20 MG PO SCH (15:40)
[2022-09-17] MEDS ORDERED: Ativan 0.5 MG PO PRN (20:40)
[2022-09-17] MEDS: solu-MEDROL 60 MG, Sterile H2O 10 ml 2 ML IV SCH ×2 (20:42)
[2022-09-17] MEDS: ROCEPHIN 1 Gm-D5w 50 ml Bag** 1 G/50 ML IVPB IV SCH (20:43)
--- NOTE | 2022-09-17 23:13 | PCM.NOTE ---
Date and Time: 09/17/222309 Subjective Assessment: Patient is more alert today .States nonproductive cough. Appetite is good is drinking water and pop.Denies chest pain. Objective Exam General Appearance: no apparent distress Neurologic Exam: alert, oriented x 3, cooperative, normal mood/affect Skin Exam: normal color, warm Respiratory Exam: diminished breath sounds Cardiovascular Exam: regular rate/rhythm OBJECTIVE DATA Vital Signs: Vital Signs - 24 hr Temp Pulse Resp BP Pulse Ox 09/17/22 20:00 97.3 F 96 H 22 125/67 98 09/17/22 16:00 97.0 F 91 H 18 172/82 100 09/17/22 13:29 82 18 94 L 09/17/22 12:00 97.3 F 84 20 136/77 94 L 09/17/22 08:00 96.9 F 84 24 147/103 98 09/17/22 07:13 89 18 94 L 09/17/22 04:00 97.5 F 86 24 142/66 95 09/16/22 23:51 97.8 F 85 24 154/86 97 Pain Assessment - Last Documented Pain Intensity 0 Pain Scale Used 0-10 Pain Scale Intake and Output: Intake & Output 09/15/22 09/16/22 09/17/22 09/18/22 11:59 11:59 11:59 11:59 Intake Total 1693 1200 2850 2100 Output Total 4200 3850 800 Balance -2507 1200 -1000 1300 Weight 149 kg 147.2 kg 147.2 kg Lab Results: Lab Results-Last 24 Hours 09/17/22 09/17/22 Range/Units 14:48 14:48 WBC 12.6 H (4.0-10.5) x10^3/uL RBC 4.16 (4.1-5.4) x10^6/uL Hgb 11.5 L (12.0-16.0) g/dL Hct 38.2 (35-47) % MCV 91.8 (78-100) fL MCH 27.6 (26-32) pg MCHC 30.1 L (32-36) g/dL RDW 15.1 H (11.5-14.0) % Plt Count 386 (150-450) x10^3/uL MPV 9.1 (7.5-11.0) fL Gran % 85.3 H (36.0-66.0) % Immature Gran % (Auto) 0.6 H (0.00-0.4) % Nucleat RBC Rel Count 0.0 (0.00-0.1) % Eos # (Auto) 0 (0-0.5) x10^3/uL Immature Gran # (Auto) 0.08 H (0.00-0.03) x10^3u/L Absolute Lymphs (auto) 0.75 L (1.0-4.6) x10^3/uL Absolute Monos (auto) 1.01 (0.0-1.3) x10^3/uL Absolute Nucleated RBC 0.00 (0.00-0.01) x10^3u/L Lymphocytes % 6.0 L (24.0-44.0) % Monocytes % 8.0 (0.0-12.0) % Eosinophils % 0.0 (0.00-5.0) % Basophils % 0.1 (0.0-0.4) % Absolute Granulocytes 10.70 H (1.4-6.9) x10^3/uL Basophils # 0.01 (0-0.4) x10^3/uL Procalcitonin < 0.030 L (0.030-0.080) ng/mL Radiology Exams: Radiology Procedures Category Date Time Status ECHO W/2D AND DOPPLER [US] Routine Exams 09/18/22 08:00 Ordered VENOUS BILATERAL EXTREMITY [US] Routine Exams 09/18/22 08:00 Ordered Assessment/Plan (1) Pulmonary emboli Status: Acute Code(s): I26.99 - OTHER PULMONARY EMBOLISM WITHOUT ACUTE COR PULMONALE (2) Anxiety Status: Resolved Code(s): F41.9 - ANXIETY DISORDER, UNSPECIFIED
[2022-09-18] MEDS: VENTOLIN COMMON CANISTER IH SCH ×3 (07:45→19:18)
[2022-09-18] MEDS: NICODERM CQ 14 MG TOP SCH (10:12)
[2022-09-18] MEDS: Zestril 10 MG PO SCH (10:13)
[2022-09-18] MEDS: Lasix 20 MG/2 ML IV SCH ×2 (10:13→19:53)
[2022-09-18] MEDS: Prozac 20 MG PO SCH (10:13)
[2022-09-18] MEDS: solu-MEDROL 60 MG, Sterile H2O 10 ml 2 ML IV SCH ×4 (10:13→20:28)
[2022-09-18] MEDS: ELIQUIS 2.5 MG TABLET PO SCH ×2 (10:13→19:53)
[2022-09-18] MEDS: Zithromax 500 MG/ 250 ML NaCl Premix 500 MG/250 ML IVPB IV SCH (10:14)
--- NOTE | 2022-09-18 10:34 | XRAY ---
Indication: Pulmonary embolus. Two-dimensional sonogram and color Doppler imaging of the major venous vessels of the left and right leg performed. Comparison: None No thrombus seen in the examined deep venous vessels of the left and right leg including greater saphenous vein. Veins demonstrate normal compressibility. Venous waveforms are normal with and without augmentation. Posterior right knee demonstrates a 5.8 x 1.3 x 2.5 cm Ahuja cyst. Impression: 1. Left and right leg negative for DVT. 2. Incidental right knee Ahuja's cyst.
[2022-09-18] MEDS: Sodium Chloride 0.9% 1000 ML 1,000 ML IV SCH (19:19)
[2022-09-18] MEDS: ROCEPHIN 1 Gm-D5w 50 ml Bag** 1 G/50 ML IVPB IV SCH (19:53)
--- NOTE | 2022-09-18 20:15 | PCM.NOTE ---
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 Objective Exam General Appearance: no apparent distress (resting comfortably) Neurologic Exam: alert, oriented x 3, cooperative Cardiovascular Exam: regular rate/rhythm OBJECTIVE DATA Vital Signs: Vital Signs - 24 hr Temp Pulse Resp BP Pulse Ox 09/18/22 19:40 97.9 F 100 H 16 140/89 95 09/18/22 18:19 92 H 18 96 09/18/22 16:00 97.7 F 96 H 16 136/68 97 09/18/22 11:23 98.1 F 88 16 145/73 96 09/18/22 08:00 97.9 F 100 H 16 122/67 99 09/18/22 07:48 85 18 96 09/18/22 04:00 98.2 F 89 20 134/60 97 09/18/22 00:00 97.3 F 92 H 24 100/63 96 Pain Assessment - Last Documented Pain Intensity 0 Pain Scale Used 0-10 Pain Scale Intake and Output: Intake & Output 09/16/22 09/17/22 09/18/22 09/19/22 11:59 11:59 11:59 11:59 Intake Total 1200 2850 3700 1260 Output Total 3850 2600 1100 Balance 1200 -1000 1100 160 Weight 149 kg 147.2 kg 146.8 kg Radiology Exams: Radiology Procedures Category Date Time Status ECHO W/2D AND DOPPLER [US] Routine Exams 09/18/22 10:18 Taken VENOUS BILATERAL EXTREMITY [US] Routine Exams 09/18/22 10:18 Completed Multi-Disciplinary Progress Notes: Multi-Disciplinary Progress Notes 09/18/22 15:54 Pharmacy Note by Ric Clements Today is day 5 of Rocephin and Zithromax iv. Please review if these are still needed or could be change to oral. Initialized on 09/18/22 15:54 - END OF NOTE 09/18/22 10:21 Case Management Note by Ciara Navarro CASE MANAGEMENT DEFERED AT THIS TIME- PATIENT STILL WAITING ON BED AT HIGHER LEVEL OF CARE. PATIENT NORMALLY INDEPENDENT WITH ADLS- NO NEEDS PRIOR TO THIS ILLNESS. Initialized on 09/18/22 10:21 - END OF NOTE Assessment/Plan (1) Pulmonary emboli Status: Acute Code(s): I26.99 - OTHER PULMONARY EMBOLISM WITHOUT ACUTE COR PULMONALE (2) Anxiety Status: Resolved Code(s): F41.9 - ANXIETY DISORDER, UNSPECIFIED
[2022-09-19] MEDS: VENTOLIN COMMON CANISTER IH SCH ×2 (07:11→18:00)
[2022-09-19] MEDS: Lasix 20 MG/2 ML IV SCH (08:55)
[2022-09-19] MEDS: solu-MEDROL 60 MG, Sterile H2O 10 ml 2 ML IV SCH ×2 (08:55)
[2022-09-19] MEDS: Zestril 10 MG PO SCH (08:56)
[2022-09-19] MEDS: NICODERM CQ 14 MG TOP SCH (08:56)
[2022-09-19] MEDS: Prozac 20 MG PO SCH (08:56)
[2022-09-19] MEDS: ELIQUIS 2.5 MG TABLET PO SCH ×2 (08:56→20:48)
--- NOTE | 2022-09-19 10:58 | ECHO ---
Transthoracic echocardiographic examination and color Doppler was done on 09/18/2022. INDICATION: Pulmonary embolism, history of hypertension. IMPRESSION: 1) GLOBAL LEFT VENTRICULAR HYPOKINESIA. EJECTION FRACTION AROUND 30 TO 35%. 2) SEVERE MITRAL REGURGITATION. 3) MILD TRICUSPID REGURGITATION. RIGHT VENTRICULAR SYSTOLIC PRESSURE OF 44 MM OF MERCURY. 4) MODERATE PULMONIC INSUFFICIENCY. 5) TRACE AORTIC REGURGITATION. 6) LEFT ATRIAL ENLARGEMENT. The left ventricle is partially visualized but this demonstrated global-type of hypokinesia. Ejection fraction between 30 to 35%. The left ventricular thickness appears to be within normal. Left ventricle appears to be dilated. Mitral valve is seen and has a low flow characteristic. There is severe mitral regurgitation. Left atrium is moderately enlarged. The aortic valve is sclerotic. There is trivial aortic regurgitation. The right side chambers are mildly dilated. There is mild tricuspid regurgitation. The right ventricular systolic pressure of 44 mm of Mercury suggestive of mild pulmonary hypertension. There is also moderate pulmonary insufficiency.
[2022-09-19] MEDS: Zithromax 500 MG/ 250 ML NaCl Premix 500 MG/250 ML IVPB IV SCH (13:50)
--- NOTE | 2022-09-19 19:26 | PCM.NOTE ---
Date and Time: 09/19/221923 Subjective Assessment: Patient is feelin stronger and not sleeping throughout the day as before. Procalcitonin and WBC have normalized and IV antibiotics discontinued. Objective Exam General Appearance: no apparent distress Neurologic Exam: alert, oriented x 3, cooperative, normal mood/affect Skin Exam: normal color, warm, dry Respiratory Exam: diminished breath sounds (but improved aeration mid lung [place]) OBJECTIVE DATA Vital Signs: Vital Signs - 24 hr Temp Pulse Resp BP Pulse Ox 09/19/22 18:00 107 H 18 98 09/19/22 16:00 97.7 F 92 H 18 143/87 97 09/19/22 12:00 95.4 F 97 H 15 138/85 99 09/19/22 08:00 95.3 F 92 H 16 138/88 92 L 09/19/22 07:35 86 18 93 L 09/19/22 04:00 96.9 F 108 H 18 138/92 94 L 09/18/22 23:19 97.7 F 98 H 17 142/80 96 09/18/22 19:40 97.9 F 100 H 16 140/89 95 Pain Assessment - Last Documented Pain Intensity 0 Pain Scale Used 0-10 Pain Scale Intake and Output: Intake & Output 09/17/22 09/18/22 09/19/22 09/20/22 11:59 11:59 11:59 11:59 Intake Total 2850 3700 1730 840 Output Total 3850 2600 1100 Balance -1000 1100 630 840 Weight 147.2 kg 146.8 kg 146.7 kg Radiology Exams: Radiology Procedures Category Date Time Status ECHO W/2D AND DOPPLER [US] Routine Exams 09/18/22 10:18 Draft VENOUS BILATERAL EXTREMITY [US] Routine Exams 09/18/22 10:18 Completed Multi-Disciplinary Progress Notes: Multi-Disciplinary Progress Notes 09/19/22 13:21 Case Management Note by Ciara Navarro PATIENT STILL WAITING ON TRANSFER AT THIS TIME. PATIENT INDEPENDENT BEFORE STAY. CURRENTLY SHE IS REQUIRING OXYGEN AT HS. THIS NEED ADDRESSED AT [facility] PATIENT HAS NOT BEEN QUALIFIED FOR THAT AT THIS TIME Initialized on 09/19/22 13:21 - END OF NOTE Assessment/Plan (1) Pulmonary emboli Status: Acute Code(s): I26.99 - OTHER PULMONARY EMBOLISM WITHOUT ACUTE COR PULMONALE (2) Anxiety Status: Resolved Code(s): F41.9 - ANXIETY DISORDER, UNSPECIFIED (3) Pneumonia Status: Resolved Assessment & Plan: clinically resolved Code(s): J18.9 - PNEUMONIA, UNSPECIFIED ORGANISM
[2022-09-20] MEDS: VENTOLIN COMMON CANISTER IH SCH (07:15)
[2022-09-20] MEDS: NICODERM CQ 14 MG TOP SCH (08:41)
[2022-09-20] MEDS ORDERED: DELTASONE 10 MG PO SCH (10:00)
[2022-09-20] MEDS: ELIQUIS 2.5 MG TABLET PO SCH (10:50)
[2022-09-20] MEDS: Prozac 20 MG PO SCH (10:50)
[2022-09-20] MEDS: Zestril 10 MG PO SCH (10:54)
[2022-09-20 11:19] VITALS: BP 131/85; PULSE 87; O2SAT 94
--- NOTE | 2022-09-29 19:55 | PCM.HP ---
History of Present Illness - Chief Complaint Chief Complaint: PE/ pneumonia Date: 09/14/22 History of Present Illness: is a 36 year old female.This is an obese 36-year-old white female who has not seen a primary care physician and is a current daily smoker of cigarettes and presents with 2-month history of worsening shortness of breath. The last few days the patient has noticed increased coughing, increased shortness of breath as well as body aches. She is coughing up yellowish sputum. Patient has an appointment to see Dr. Vang in 1 to 2 weeks. Her symptoms worsened rapidly and she states that she could not wait to see Dr. Vang. She has not measured a fever. She has no abdominal pain. She states she has chest pain with coughing only. - Review of Systems Constitutional: No Fever, No Chills Eyes: No Symptoms Ears, Nose, & Throat: No Symptoms Respiratory: Cough, Short Of Breath Cardiac: No Chest Pain, No Edema, No Syncope Abdominal/Gastrointestinal: No Abdominal Pain, No Nausea, No Vomiting, No Diarrhea Genitourinary Symptoms: No Dysuria Musculoskeletal: No Back Pain, No Neck Pain Skin: No Rash Neurological: No Dizziness, No Focal Weakness, No Sensory Changes Psychological: No Symptoms Endocrine: No Symptoms Hematologic/Lymphatic: No Symptoms Immunological/Allergic: No Symptoms Medications & Allergies Home Medications: Home Medication List Amox Tr/Potass Clav. 875 mg [Augmentin 875-125 Tablet] 875 mg PO BID 7 Days #14 tablet 09/20/22 [Rx] Apixaban [Eliquis 5 mg Tablet] 5 mg PO BID #62 tablet 09/20/22 [Rx] Azithromycin [Azithromycin 250 mg Pack] 250 mg PO UD #6 tablet 09/20/22 [Rx] Allergies/Adverse Reactions: Allergies Allergy/AdvReac Type Severity Reaction Status Date / Time No Known Drug Allergies Allergy Unverified 09/13/22 22:24 - Past Medical History Past Medical History: Yes Neurological History: No Pertinent History ENT History: No Pertinent History Cardiac History: Hypertension Respiratory History: No Pertinent History Endocrine Medical History: No Pertinent History Musculoskelatal History: Arthritis GI Medical History: No Pertinent History Pyscho-Social History: Depression Reproductive Disorders: No Pertinent History - Female History Are you now?: No - Past Surgical History Past Surgical History: Yes Neuro Surgical History: No Pertinent History Cardiac History: No Pertinent History Respiratory Surgery: No Pertinent History GI Surgical History: Cholecystectomy Genitourinary Surgical Hx: No Pertinent History Musculskeletal Surgical Hx: Joint Replacement Female Surgical History: Section Other Surgical History: Rt knee - Social History Smoking Status: Current every day smoker Exposure to second hand smoke: Yes Alcohol: None Drug Use: none - Physical Exam General Appearance: no apparent distress, alert Neurologic Exam: alert, oriented x 3, cooperative, normal mood/affect, nml cerebellar function, nml station & gait, sensation nml, No motor deficits Eye Exam: PERRL/EOMI, eyes nml inspection Ears, Nose, Throat Exam: normal ENT inspection, TMs normal, pharynx normal, moist mucous membranes Neck Exam: normal inspection, non-tender, supple, full range of motion Respiratory Exam: normal breath sounds, lungs clear, No respiratory distress Cardiovascular Exam: regular rate/rhythm, normal heart sounds, normal peripheral pulses Gastrointestinal/Abdomen Exam: soft, normal bowel sounds, No tenderness, No mass Back Exam: normal inspection, normal range of motion, No CVA tenderness, No vertebral tenderness Extremity Exam: normal inspection, normal range of motion, pelvis stable Skin Exam: normal color, warm, dry, No rash Lymphatic Exam: No adenopathy Results - Labs Lab/Micro Results: Microbiology 09/13/22 15:28 Blood Culture Gram Stain - Final Blood Not Reportable Blood Culture - Final NO GROWTH 09/13/22 15:30 Blood Culture Gram Stain - Final Blood Not Reportable Blood Culture - Final NO GROWTH Assessment/Plan (1) Pulmonary emboli Status: Acute Code(s): I26.99 - OTHER PULMONARY EMBOLISM WITHOUT ACUTE COR PULMONALE (2) Pneumonia Status: Resolved Code(s): J18.9 - PNEUMONIA, UNSPECIFIED ORGANISM
--- NOTE | 2022-09-29 19:56 | PCM.DS ---
Discharge Summary Date of Admission: 09/13/22 20:51 Date of Discharge: 09/20/2022 Admitting Physician: ERENDIRA COSBY Consults: Consults on Case 09/19/22 07:46 Consult Pulmonology ROUTINE Primary Care Provider: ERENDIRA COSBY Allergies Allergies No Known Drug Allergies Allergy (Unverified 09/13/22 22:24) Hospital Summary - Hospital Course Hospital Course: Pt. cough and hypoxia gradually improved to the point the patient was ready for discharge to home. - Vitals & Intake/Output Vital Signs: Vital Signs Temperature 97.0 F 09/20/22 11:18 Pulse Rate 87 09/20/22 11:18 Respiratory Rate 16 09/20/22 11:18 Blood Pressure 131/85 09/20/22 11:18 O2 Sat by Pulse Oximetry 94 L 09/20/22 11:18 - Lab Result Diagrams: 09/17/22 14:48 09/16/22 05:40 Micro Results-Entire Visit: Microbiology 09/13/22 15:28 Blood Culture Gram Stain - Final Blood Not Reportable Blood Culture - Final NO GROWTH 09/13/22 15:30 Blood Culture Gram Stain - Final Blood Not Reportable Blood Culture - Final NO GROWTH - Procedures and Test Procedures and Tests throughout Hospitalization: Therapy Orders & Screens 09/13/22 15:21 Respiratory Therapy Assessment DAILY Comment: 09/13/22 21:01 Respiratory Therapy Consult ROUTINE Comment: Reason For Exam: 09/13/22 22:15 Oxygen Nasal Cannula 2 lpm Comment: Respiratory Therapy Assessment DAILY Comment: 09/13/22 23:01 Smoking Cessation Education ONCE Comment: Diagnosis: PE/ pneumonia Smoking Status: Current every day smoker Approximately how many cigarettes per day: 10 Do you dip or chew tobacco: No 09/20/22 14:18 Home Sleep Study ONCE Comment: Diagnosis: PE/ pneumonia Discharge Exam General Appearance: no apparent distress, alert Neurologic Exam: alert, oriented x 3, cooperative, normal mood/affect, nml cerebellar function, sensation nml, No motor deficits Eye Exam: PERRL, EOMI, eyes nml inspection Ears, Nose, Throat Exam: normal ENT inspection, pharynx normal, moist mucous membranes Neck Exam: normal inspection, non-tender, supple, full range of motion Respiratory Exam: normal breath sounds, lungs clear, No respiratory distress Cardiovascular Exam: regular rate/rhythm, normal heart sounds Gastrointestinal/Abdomen Exam: soft, No tenderness, No mass Pelvic Exam: deferred Rectal Exam: deferred Back Exam: normal inspection, normal range of motion, No CVA tenderness, No vertebral tenderness Extremity Exam: normal inspection, normal range of motion Skin Exam: normal color, warm, dry Final Diagnosis/Problem List - Final Discharge Diagnosis/Problem (1) Pulmonary emboli Status: Acute Code(s): I26.99 - OTHER PULMONARY EMBOLISM WITHOUT ACUTE COR PULMONALE (2) Pneumonia Status: Resolved Code(s): J18.9 - PNEUMONIA, UNSPECIFIED ORGANISM - Discharge Discharge Date: 09/20/22 Disposition: Home, Self-Care Condition: Fair Prescriptions: New Amox Tr/Potass Clav. 875 mg [Augmentin 875-125 Tablet] 875 mg PO BID 7 Days #14 tablet Azithromycin [Azithromycin 250 mg Pack] 250 mg PO UD #6 tablet Apixaban [Eliquis 5 mg Tablet] 5 mg PO BID #62 tablet Outpatient Orders: Sleep Study Facility: [facility], Location: RESPIRATORY THERAPY Instructions: Pulmonary Embolism (Blood Clot in the Lungs) (DC), Oxygen Therapy, Adult (DC) Additional Instructions: WEAR 2L/NC WHEN SLEEPING CALL [facility] WHEN YOU GET HOME SO THEY CAN DELIVER YOUR HOME CONCENTRATOR [phone] FOLLOW INSTRUCTIONS GIVEN TO YOUR BY RESPIRATORY FOR HER SLEEP STUDY Follow up with: MAXWELL HODGES [ACTIVE STAFF] - 09/27/22 2:45 pm ERENDIRA CSOBY MD [Primary Care Provider] - 09/26/22 10:15 am
== END 2022-09-20 14:14 | disposition home or self-care (01) | DRG 175 ==
LOC: ED 14:49 → MED SURG 20:51
PROVIDERS: ADMIT Family Medicine; ATTEND Family Medicine
DX: I26.99 Other pulmonary embolism without acute cor pulmonale (principal); J18.9 Pneumonia, unspecified organism; F41.9 Anxiety disorder, unspecified; I10 Essential (primary) hypertension; Z72.0 Tobacco use; Z20.828 Contact with and (suspected) exposure to other viral communicable diseases
CPT/HCPCS: 0241U; 36000; 36415; 36600; 71045; 71260; 80053; 82375; 82803; 83605; 83880; 84145; 84484; 85025; 85379; 87040; 93005; 93306; 93970; 94640; 94760; 94762; 96372; 96374; 96375; 99285; 99291; 95806; J0456; J0696; J1650; J1940; J2060; J2405; J2930; J7609; A9270-GY; G0398